=== PATIENT | male | born 1995 | race Caucasian/White ===

== ENCOUNTER 2018-07-12 15:08 | Emergency (ER) ==
[2018-07-12 15:15] VITALS: BP 164/100; TEMP 97.8; BMI 22.4
--- NOTE | 2018-07-12 15:29 | ED.PDOC ---
General ED Provider: Dr. RAMIRO JOHNSON Chief Complaint: Palpitations Stated Complaint: Experienced chest palpitations last eveing along with tingling sensation inner hands/. Hx panic attacks Time Seen by Physician: 15:13 Mode of Arrival: Walk-In Information Source: Patient Exam Limitations: No limitations Nursing and Triage Documentation Reviewed and Agree: Yes Does patient meet sepsis criteria?: No System Inflammatory Response Syndrome: Not Applicable Sepsis Protocol: For patient's 13 years and over: Temp is 96.8 and below OR 101 and greater Pulse >90 BPM Resp >20/minute Acutely Altered Mental Status Are patient's symptoms suggestive of a new infection, such as: -Pneumonia -Skin, Soft Tissue -Endocarditis -UTI -Bone, Joint Infection -Implantable Device -Acute Abdominal Infection -Wound Infection -Meningitis -Blood Stream Catheter Infection -Unknown Cardiovascular Complaint Exam - Palpitations Complaint/Exam Onset/Duration: 12 hrs Symptoms Are: Still present Timing: Intermittent Initial Severity: Mild Current Severity: None Character: Reports: Skipped beats Aggravating: Reports: None Alleviating: Reports: Rest Associated Signs and Symptoms: Reports: Lightheadedness, Dizziness Related History: Similar episode Related Surgical History: Reports: None Cardiac Risk Factors: Reports: None Pulmonary Embolism Risk Factors: Reports: None Atrial Fibrillation Risk Factors: Reports: None Thyroid Exam: Normal Differential Diagnoses: Hypoxia, Hypokalemia, Medication induced, Panic Disorder , Hyperventilation Quality Indicators for AMI: EKG in 10min. Review of Systems - Review Of Systems Constitutional: Reports: No symptoms Eyes: Reports: No symptoms Ears, Nose, Mouth, Throat: Reports: No symptoms Respiratory: Reports: No symptoms Cardiac: Reports: Lightheadedness, Palpitations GI: Reports: No symptoms : Reports: No symptoms Musculoskeletal: Reports: No symptoms Skin: Reports: No symptoms Neurological: Reports: No symptoms Endocrine: Reports: No symptoms Hematologic/Lymphatic: Reports: No symptoms All Other Systems: Reviewed and Negative Past Medical History - Past Medical History Previously Healthy: Yes Endocrine: Reports: None Cardiovascular: Reports: None Respiratory: Reports: None Hematological: Reports: None Gastrointestinal: Reports: None Genitourinary: Reports: None Neuro/Psych: Reports: None Musculoskeletal: Reports: Joint Pain (one month ago from fall ) Cancer: Reports: None - Surgical History General Surgical History: Reports: Unknown - Family History Family History: Reports: Unknown - Social History Smoking Status: Never smoker Hx Substance Use: No Alcohol Screening: None Physical Exam - Physical Exam Appearance: Well-appearing, No pain distress, Well-nourished Ill-appearing: None Pain Distress: None Eyes: MARCO, EOMI, Conjunctiva clear ENT: Ears normal, Nose normal, Oropharynx normal Respiratory: Airway patent, Breath sounds clear, Breath sounds equal, Respirations nonlabored Cardiovascular: RRR, Pulses normal, No rub, No murmur GI/: Soft, Nontender, No masses, Bowel sounds normal, No Organomegaly Musculoskeletal: Normal strength, ROM intact, No edema, No calf tenderness Skin: Warm, Dry, Normal color Neurological: Sensation intact, Motor intact, Reflexes intact, Cranial nerves intact, Alert, Oriented Psychiatric: Affect appropriate, Mood appropriate Interpretation - Radiology Interpretation Radiology Interpretation By: Radiologist Exam Interpreted: CXR (within normal limits) Critical Care Note - Critical Care Note Total Time (mins): 30 Course - Course Hematology/Chemistry: 07/12/18 15:40 07/12/18 15:40 Orders, Labs, Meds: Lab Review 07/12/18 07/12/18 07/12/18 15:40 15:40 15:40 WBC 11.40 H RBC 6.00 Hgb 17.0 Hct 49.4 MCV 82.3 MCH 28.3 MCHC 34.4 RDW Coeff of Rama 12.5 Plt Count 293 Immature Gran % (Auto) 0.4 Neut % (Auto) 81.9 Lymph % (Auto) 11.1 [place] % (Auto) 5.8 Eos % (Auto) 0.4 Baso % (Auto) 0.4 Immature Gran # (Auto) 0.0 Neut # (Auto) 9.4 H Lymph # (Auto) 1.3 [place] # (Auto) 0.7 Eos # (Auto) 0.0 Baso # (Auto) 0.1 Sodium Potassium Chloride Carbon Dioxide Anion Gap BUN Creatinine Estimated GFR (MDRD) BUN/Creatinine Ratio Glucose Calcium Magnesium Total Bilirubin AST ALT Alkaline Phosphatase Total Creatine Kinase CK-MB (CK-2) CK-MB (CK-2) % Troponin I Total Protein Albumin Globulin Albumin/Globulin Ratio TSH 1.580 Free T4 1.91 07/12/18 15:40 WBC RBC Hgb Hct MCV MCH MCHC RDW Coeff of Rama Plt Count Immature Gran % (Auto) Neut % (Auto) Lymph % (Auto) [place] % (Auto) Eos % (Auto) Baso % (Auto) Immature Gran # (Auto) Neut # (Auto) Lymph # (Auto) [place] # (Auto) Eos # (Auto) Baso # (Auto) Sodium 138.7 Potassium 4.17 Chloride 101.0 Carbon Dioxide 24.5 Anion Gap 17.37 BUN 10.3 Creatinine 0.99 Estimated GFR (MDRD) 92.00 BUN/Creatinine Ratio 10.40 Glucose 113.8 H Calcium 9.94 Magnesium 2.31 H Total Bilirubin 1.72 H AST 30.3 ALT 28.6 Alkaline Phosphatase 74.6 Total Creatine Kinase 179.4 H CK-MB (CK-2) 1.810 CK-MB (CK-2) % 1.0000 Troponin I < 0.012 Total Protein 8.52 H Albumin 5.27 H Globulin 3.25 Albumin/Globulin Ratio 1.62 TSH Free T4 Orders Category Date Time Status EKG-(ED ONLY) Stat CARDIO 07/12/18 15:27 Completed CBC W/ AUTO DIFF Stat LAB 07/12/18 15:40 Completed CMP [COMPREHENSIVE METABOLIC PANEL] Stat LAB 07/12/18 15:40 Completed CPK [CREATINE KINASE] Stat LAB 07/12/18 15:40 Completed FREE T4 (FREE THYROXINE) Stat LAB 07/12/18 15:40 Completed MAGNESIUM Stat LAB 07/12/18 15:40 Completed TROPONIN I Stat LAB 07/12/18 15:40 Completed TSH [THYROID STIMULATING HORMONE] Stat LAB 07/12/18 15:40 Completed CHEST, 1V AP ONLY Stat RADS 07/12/18 16:19 Completed Vital Signs: Temp Pulse Resp BP Pulse Ox 07/12/18 15:09 97.8 F 99 H 18 164/100 H 99 ALISSA Risk Score ALISSA Risk Score: Risk Score Odds of by 30D 0 0.1 (0.1-0.2) 1 0.3 (0.2-0.3) 2 0.4 (0.3-0.5) 3 0.7 (0.6-0.9) 4 1.2 (1.0-1.5) 5 2.2 (1.9-2.6) 6 3.0 (2.5-3.6) 7 4.8 (3.8-6.1) Departure - Departure Time of Disposition: 17:40 Disposition: HOME SELF-CARE Discharge Problem: Heart palpitations, Panic anxiety syndrome, Elevated BP without diagnosis of hypertension Instructions: Heart Palpitations (ED), Anxiety (ED) Condition: Good Pt referred to PMD for follow-up: Yes (advised to establish with assigned pcp) IPMP verified?: No Additional Instructions: Reassurance Explained results of lab and ekg findings Relaxation techinques CHange positons slowly to avoid orthostatic hypotension that can occur and cause your symptoms Limit caffeninated beverages which can cause palpitations Allergies/Adverse Reactions: Allergies No Known Allergies Allergy (Verified 07/12/18 15:12) Home Medications: Ambulatory Orders 1 [No Reported Medications] 07/12/18 Disposition Discussed With: Patient
--- NOTE | 2018-07-13 07:03 | DI ---
EXAM: CHEST FRONTAL VIEW HISTORY: Chest palpitations. COMPARISON: None FINDINGS: Heart size and mediastinum within normal limits. Lungs are free of infiltrate. No c onsolidation or pleural fluid. There is no pneumothorax or acute bony finding. IMPRESSION: Findings within normal limits.
== END 2018-07-12 18:05 | disposition home or self-care (01) ==
LOC: ED 15:08
DX: R00.2 Palpitations (principal); F41.0 Panic disorder [episodic paroxysmal anxiety]; R03.0 Elevated blood-pressure reading, without diagnosis of hypertension; R42 Dizziness and giddiness
CPT/HCPCS: 36415; 80053; 82550; 82553; 83735; 84439; 84443; 84484; 85025; 93005; 93010; 99283

== ENCOUNTER 2018-09-13 20:17 | Emergency (ER) ==
[2018-09-13 20:21] VITALS: TEMP 98.9; BMI 21.7
--- NOTE | 2018-09-13 20:38 | ED.PDOC ---
General ED Provider: Dr. RICARDO ROLDAN Chief Complaint: Non-specific Complaint Stated Complaint: started feeling very anxious today feeling like he has a panic attack. Admitted to nursing that he took an unprescribed lortab but denies smoking any illicite drugs. Time Seen by Physician: 20:36 Mode of Arrival: Walk-In Information Source: Patient Nursing and Triage Documentation Reviewed and Agree: Yes Does patient meet sepsis criteria?: No System Inflammatory Response Syndrome: Not Applicable Sepsis Protocol: For patient's 13 years and over: Temp is 96.8 and below OR 101 and greater Pulse >90 BPM Resp >20/minute Acutely Altered Mental Status Are patient's symptoms suggestive of a new infection, such as: -Pneumonia -Skin, Soft Tissue -Endocarditis -UTI -Bone, Joint Infection -Implantable Device -Acute Abdominal Infection -Wound Infection -Meningitis -Blood Stream Catheter Infection -Unknown Psychological Complaint Exam - Psychiatric Complaint/Exam Patient Complains Of: Present: Other (anxiety ) Onset/Duration: today Symptoms Are: Still present Timing: Constant Initial Severity: Moderate Current Severity: Severe Character: Present: Anxious Associated Signs And Symptoms: Denies: Hostile, Confused, Hallucinating, Paranoid behavior, Sleep disturbance, Appetite change Related History: Denies: Suicidal thoughts, Suicidal plan, Suicidal gestures, Homicidal plan, Homicidal gestures, Prior attempts, Recent stressors Completed Suicide Risk Factors: None Social Withdrawal Present: No Social Isolation Present: No Prior Suicide Attempt: No Injury From Prior Suicide Attempt: No Patient Uncooperative For Exam: No Mood: Present: Anxious Differential Diagnoses: Anxiety Review of Systems - Review Of Systems Constitutional: Reports: No symptoms Eyes: Reports: No symptoms Ears, Nose, Mouth, Throat: Reports: No symptoms Respiratory: Reports: No symptoms Cardiac: Reports: No symptoms GI: Reports: No symptoms : Reports: No symptoms Musculoskeletal: Reports: No symptoms Skin: Reports: No symptoms Neurological: Reports: Anxiety, Numbness (around the lips and finger tips. ), Tingling Endocrine: Reports: No symptoms Hematologic/Lymphatic: Reports: No symptoms All Other Systems: Reviewed and Negative Past Medical History - Past Medical History Previously Healthy: Yes Endocrine: Reports: None Cardiovascular: Reports: None Respiratory: Reports: None Hematological: Reports: None Gastrointestinal: Reports: None Genitourinary: Reports: None Neuro/Psych: Reports: None Musculoskeletal: Reports: Joint Pain (one month ago from fall ) Cancer: Reports: None - Surgical History General Surgical History: Reports: Unknown - Family History Family History: Reports: Unknown - Social History Smoking Status: Never smoker Hx Substance Use: No Alcohol Screening: None - Immunizations Tetanus Shot up to Date: No Physical Exam - Physical Exam Appearance: Ill-appearing Eyes: MARCO, EOMI, Conjunctiva clear Respiratory: Airway patent, Breath sounds clear, Breath sounds equal, Respirations nonlabored Cardiovascular: Tachycardia GI/: Soft Skin: Warm, Dry Neurological: Alert, Oriented Psychiatric: Anxious Critical Care Note - Critical Care Note Total Time (mins): 0 Course - Course Orders, Labs, Meds: Lab Review 09/13/18 20:46 Urine Opiates Screen Positive Ur Oxycodone Screen Negative Urine Methadone Screen Negative Ur Propoxyphene Screen Negative Ur Barbiturates Screen Negative U Tricyclic Antidepress Negative Ur Phencyclidine Scrn Negative Ur Amphetamine Screen Negative U Methamphetamines Scrn Negative U Benzodiazepines Scrn Negative Urine Cocaine Screen Negative U Cannabinoids Screen Negative Orders Category Date Time Status DRUG SCREEN, URINE, RAPID Stat LAB 09/13/18 20:46 Completed Lorazepam [Ativan] MEDS 09/13/18 20:33 Discontinued 1 mg PO ONCE STA Medications Discontinued Medications Generic Name Dose Route Start Last Admin Trade Name Freq PRN Reason Stop Dose Admin Lorazepam 1 mg 09/13/18 20:33 09/13/18 21:14 Ativan PO 09/13/18 20:34 1 mg ONCE STA Administration Vital Signs: Temp Pulse Resp BP Pulse Ox 09/13/18 20:53 120/74 09/13/18 20:41 84 14 134/86 09/13/18 20:17 98.9 F 99 H 20 157/90 H 99 Departure - Departure Time of Disposition: 21:40 Disposition: HOME SELF-CARE Discharge Problem: Panic attack Instructions: Panic Attack (ED) Condition: Stable Pt referred to PMD for follow-up: Yes IPMP verified?: No Additional Instructions: Take Medications as prescribed Follow up with PCP in 3 days Prescriptions: Buspirone HCl 10 mg PO TID PRN #20 tablet PRN Reason: Anxiety Allergies/Adverse Reactions: Allergies No Known Allergies Allergy (Verified 09/13/18 20:21) Home Medications: Ambulatory Orders Buspirone HCl 10 mg PO TID PRN #20 tablet 09/13/18 Disposition Discussed With: Patient, Family
[2018-09-13 20:53] VITALS: BP 120/74
[2018-09-13] MEDS: ATIVAN PO STA (21:14)
== END 2018-09-13 21:47 | disposition home or self-care (01) ==
LOC: ED 20:17
DX: F41.0 Panic disorder [episodic paroxysmal anxiety] (principal)
CPT/HCPCS: 80306; 99283